=== PATIENT | female | born 1990 | race American Indian/Alaskan Native ===

== ENCOUNTER 2022-03-01 06:00 | Emergency (ER) | payer MEDICAID ==
[2022-03-01] MEDS ORDERED: Sodium Chloride 0.9% 1,000 ML IV ONE ×2 (06:27→08:21)
[2022-03-01] MEDS ORDERED: Sodium Chloride 0.9% 10 ML Syringe FLUSH PRN (06:27)
[2022-03-01] MEDS ORDERED: Metoprolol Tartrate 5 MG/5 ML SDV IVPUSH ONE (06:31)
[2022-03-01 06:57] VITALS: BP 114/49; PULSE 139
[2022-03-01] MEDS ORDERED: Diltiazem 25 MG/5 ML SDV IVPUSH ONE (08:22)
== END 2022-03-01 11:22 | disposition home or self-care (01) ==
LOC: CC.ED 06:00
DX: I48.91 Unspecified atrial fibrillation (principal); E86.0 Dehydration; Z88.1 Allergy status to other antibiotic agents
CPT/HCPCS: 36415; 71045; 80053; 83735; 84484; 85025; 93005; 93010; 96361; 96374; 96375; 99285; 99285-25; J3490; J7030

== ENCOUNTER 2022-09-01 16:31 | Emergency (ER) | payer MEDICAID ==
[2022-09-01] MEDS ORDERED: Ketorolac 60 MG/2 ML SDV IM ONE (16:44)
[2022-09-01] MEDS ORDERED: Take Home: Amoxicillin 500 MG Cap, 2 Cap Pack PO ONE (16:45)
[2022-09-01] MEDS ORDERED: Take Home: predniSONE 20 MG, 2 Tab Pack PO ONE (16:49)
[2022-09-01 20:38] VITALS: BP 127/84; PULSE 94
== END 2022-09-01 17:20 | disposition home or self-care (01) ==
LOC: CC.ED 16:31
DX: J02.0 Streptococcal pharyngitis (principal); Z88.1 Allergy status to other antibiotic agents; Z88.8 Allergy status to other drugs, medicaments and biological substances; Z79.82 Long term (current) use of aspirin
CPT/HCPCS: 87430; 96372; 99282; 99283; A9270; J1885; J7512

== ENCOUNTER 2023-05-11 08:15 | Emergency (ER) | payer BC, MEDICAID ==
[2023-05-11] MEDS ORDERED: Metoprolol Tartrate 5 MG/5 ML SDV IVPUSH ONE (08:24)
[2023-05-11] MEDS ORDERED: Sodium Chloride 0.9% 10 ML Syringe FLUSH PRN (08:24)
[2023-05-11 08:35] LABS: BASOPHILS ABSOLUTE AUTO 0.06 10^3/uL (0.00-0.50); BASOPHILS PERCENT AUTO 0.6 % (0-1); EOSINOPHILS ABSOLUTE AUTO 0.19 10^3/uL (0.00-1.50); EOSINOPHILS PERCENT AUTO 1.9 % (0-6); HEMATOCRIT 39.3 % (37.0-47.0); HEMOGLOBIN 12.9 g/dL (12.0-16.0); IMMATURE GRAN ABSOLUTE AUTO 0.02 10^3/uL (0.00-0.49); IMMATURE GRAN PERCENT AUTO 0.2 % (0.0-4.9); LYMPHOCYTES ABSOLUTE AUTO 3.18 10^3/uL (0.60-5.00); LYMPHOCYTES PERCENT AUTO 32.3 % (24-44); MEAN CORPUSCULAR HEMOGLOBIN 30.4 pg (27.0-32.0); MEAN CORPUSCULAR HGB CONC 32.8 g/dL (32.0-36.0); MEAN CORPUSCULAR VOLUME 92.7 fL (83.0-97.0); MONOCYTES ABSOLUTE AUTO 0.61 10^3/uL (0.00-1.50); MONOCYTES PERCENT AUTO 6.2 % (0-10); NEUTROPHILS PERCENT AUTO 58.8 % (41-71); PLATELET COUNT,PLT 391 10^3/uL (150-400); RED BLOOD CELL COUNT 4.24 x10^6/uL (4.00-5.50); WHITE BLOOD CELL COUNT,WBC 9.9 10^3/uL (4.0-11.0)
[2023-05-11] MEDS ORDERED: Sodium Chloride 0.9% 1,000 ML IV SCH (08:45)
[2023-05-11 08:50] LABS: ALBUMIN 3.3 g/dL (3.4-5.0); BILIRUBIN TOTAL 0.5 mg/dL (0.0-1.0); C-REACTIVE PROTEIN 2.3 mg/dL (<=0.30); CALCIUM 8.8 mg/dL (8.4-10.1); CREATININE 0.7 mg/dL (0.6-1.0); EST CRCL DRUG DOSING (CG) 99.63 mL/min; POTASSIUM,K 3.5 mEq/L (3.5-5.0); PROTEIN TOTAL,TP 7.4 g/dL (6.4-8.2)
[2023-05-11 08:52] VITALS: BP 96/71; PULSE 133
[2023-05-11] MEDS ORDERED: Diltiazem 25 MG/5 ML SDV IVPUSH ONE (09:15)
== END 2023-05-11 11:30 | disposition home or self-care (01) ==
LOC: CC.ED 08:15
DX: I48.0 Paroxysmal atrial fibrillation (principal); Z79.82 Long term (current) use of aspirin; Z88.1 Allergy status to other antibiotic agents
CPT/HCPCS: 71045; 80053; 84484; 85025; 86140; 93005; 93010; 96374; 96375; 99284; 99285-25; J3490; J7030

== ENCOUNTER 2023-10-28 22:43 | Emergency (ER) | payer MEDICAID ==
[2023-10-28 23:32] LABS: AMPHETAMINES,URINE NEGATIVE (NEGATIVE); BARBITURATES,URINE NEGATIVE (NEGATIVE); BENZODIAZEPINE,URINE NEGATIVE (NEGATIVE); MDMA (ECSTASY), URINE NEGATIVE (NEGATIVE); METHADONE,URINE NEGATIVE (NEGATIVE); METHAMPHETAMINES,URINE NEGATIVE (NEGATIVE); OPIATES,URINE NEGATIVE (NEGATIVE); OXYCODONE,URINE NEGATIVE (NEGATIVE); PHENCYCLIDINE,URINE NEGATIVE (NEGATIVE); TCA,URINE NEGATIVE (NEGATIVE)
[2023-10-28] MEDS: Sodium Chloride 0.9% 1,000 ML IV ONE (23:45)
[2023-10-29 01:16] VITALS: BP 140/88; PULSE 84
== END 2023-10-29 00:50 | disposition home or self-care (01) ==
LOC: CC.ED 22:43
DX: F12.10 Cannabis abuse, uncomplicated (principal); Z88.1 Allergy status to other antibiotic agents; Z88.8 Allergy status to other drugs, medicaments and biological substances
CPT/HCPCS: 80305-QW; 96360; 99284; 99284-25; J7030

== ENCOUNTER 2024-09-26 15:07 | Emergency (ER) | payer MEDICAID ==
[2024-09-26 15:12] VITALS: BP 147/90; PULSE 91
[2024-09-26 15:37] LABS: WHITE BLOOD CELL COUNT,WBC 5.3 10^3/uL (4.0-11.0)
[2024-09-26 15:38] LABS: BASOPHILS ABSOLUTE AUTO 0.02 10^3/uL (0.00-0.50); BASOPHILS PERCENT AUTO 0.4 % (0-1); EOSINOPHILS ABSOLUTE AUTO 0.22 10^3/uL (0.00-1.50); EOSINOPHILS PERCENT AUTO 4.1 % (0-6); HEMATOCRIT 37.6 % (37.0-47.0); HEMOGLOBIN 12.8 g/dL (12.0-16.0); LYMPHOCYTES ABSOLUTE AUTO 2.95 10^3/uL (0.60-5.00); LYMPHOCYTES PERCENT AUTO 55.5 % (24-44); MEAN CORPUSCULAR HEMOGLOBIN 30.8 pg (27.0-32.0); MEAN CORPUSCULAR VOLUME 90.4 fL (83.0-97.0); MONOCYTES PERCENT AUTO 5.6 % (0-10); NEUTROPHILS ABSOLUTE AUTO 1.83 x10^3/uL (1.80-8.00); NEUTROPHILS PERCENT AUTO 34.4 % (41-71); PLATELET COUNT,PLT 237 10^3/uL (150-400); RED BLOOD CELL COUNT 4.16 x10^6/uL (4.00-5.50)
[2024-09-26 15:51] LABS: ALBUMIN 3.5 g/dL (3.4-5.0); BILIRUBIN TOTAL 0.3 mg/dL (0.0-1.0); C-REACTIVE PROTEIN 1.91 mg/dL (<=0.50); CALCIUM 8.7 mg/dL (8.4-10.1); CREATININE 0.8 mg/dL (0.6-1.0); EST CRCL DRUG DOSING (CG) 85.56 mL/min; POTASSIUM,K 3.6 mEq/L (3.5-5.0); PROTEIN TOTAL,TP 7.4 g/dL (6.4-8.2)
[2024-09-26] MEDS: predniSONE 20 MG Tab PO STA (16:29)
[2024-09-26] MEDS: Take Home: predniSONE 20 MG, 2 Tab Pack PO ONE (16:30)
== END 2024-09-26 16:33 | disposition home or self-care (01) ==
LOC: CC.ED 15:07
DX: R21 Rash and other nonspecific skin eruption (principal); R59.1 Generalized enlarged lymph nodes; I48.91 Unspecified atrial fibrillation; J45.909 Unspecified asthma, uncomplicated; Z88.8 Allergy status to other drugs, medicaments and biological substances; Z88.1 Allergy status to other antibiotic agents
CPT/HCPCS: 36415; 80053; 85025; 86140; 86308; 87428; 87651; 99283; J7512; 99284